=== PATIENT | male | born 1975 | race Caucasian/White ===

== ENCOUNTER 2022-09-09 14:10 | Inpatient (IN) | payer BC ==
[2022-09-09 17:01] VITALS: BMI 23.7
[2022-09-09] MEDS ORDERED: MAG HYDROX/AL HYDROX/SIMETH 30 ML UNIT-DOSE CUP PO PRN (18:24)
[2022-09-09] MEDS ORDERED: BENZOCAINE/MENTHOL (CHLORASEPTIC ) LOZENGE MM PRN (18:24)
[2022-09-09] MEDS ORDERED: ACETAMINOPHEN 325 MG TABLET (FP) PO PRN (18:24)
[2022-09-09] MEDS ORDERED: P-EPHED 60MG/TRIPROLIDI 2.5MG TABLET PO PRN (18:24)
[2022-09-09] MEDS ORDERED: POLYETHYLENE GLYCOL (HEALTHYLAX) 3350 17 GM PACKET PO PRN (18:24)
[2022-09-09] MEDS ORDERED: guaiFENesin 200 MG/10 ML 10 ML UNIT-DOSE CUPS PO PRN (18:24)
[2022-09-09] MEDS ORDERED: IBUPROFEN 400 MG TABLET (FP) PO PRN (18:24)
[2022-09-09] MEDS ORDERED: MAGNESIUM HYDROX 2400MG/30ML ORAL SUSPENSION 30 ML CUP PO PRN (18:24)
[2022-09-09] MEDS ORDERED: LOPERAMIDE HCL 2 MG CAPSULE PO PRN (18:24)
[2022-09-10] MEDS ORDERED: TUBERCULIN PPD 5 TU/0.1ML VIAL ID ONE (01:00)
[2022-09-10] MEDS ORDERED: INSULIN (NOVOLOG) ASPART 100 UNITS/ML 10ML VIAL SQ ONE (01:39)
[2022-09-10] MEDS ORDERED: INSULIN (NOVOLOG) ASPART 100 UNITS/ML 10ML VIAL ONE ×3 (01:43→17:05)
[2022-09-10] MEDS ORDERED: INSULIN SLIDING SCALE (NOVOLOG) 1 VIAL SQ SCH (07:00)
[2022-09-10] MEDS: INSULIN SLIDING SCALE (NOVOLOG) 1 VIAL SQ SCH ×4 (08:50→22:04)
[2022-09-10] MEDS ORDERED: methaDONE HCL 10 MG TABLET PO SCH (10:00)
[2022-09-10] MEDS ORDERED: methaDONE 80 MG, methaDONE 20 MG PO ONE (10:15)
[2022-09-10] MEDS: NICOTINE 14 MG/24 HOURS TOPICAL PATCH TD SCH ×2 (10:22→17:17)
[2022-09-10] MEDS: PRENATAL VITAMINS W/ FOLIC ACID TABLET (FP) PO SCH ×2 (10:22→17:13)
[2022-09-10] MEDS: INSULIN (NOVOLOG) ASPART 100 UNITS/ML 10ML VIAL SQ SCH ×2 (11:39→17:44)
[2022-09-10] MEDS: NICOTINE 10 MG CARTRIDGE (INHALER) IH PRN (11:56)
[2022-09-10 14:36] LABS: HEMATOCRIT 29.3 % (35.4-49); HEMOGLOBIN 9.4 GM/dL (11.7-16.9); MCH 26.6 pg (25.7-33.7); MCHC 32.2 g/dl (32.0-35.9); MEAN CELL VOLUME 82.7 fl (80-96); MEAN PLT VOLUME 7.5 fl (7.5-11.1); PLATELET COUNT 322 10^3/uL (134-434); RBC 3.54 M/mm3 (4.00-5.60); RDW 16.6 % (11.9-15.9); WHITE BLOOD COUNT 5.4 K/mm3 (4.0-10.0)
[2022-09-10 15:12] LABS: CHLORIDE 99 mmol/L (98-107); SODIUM 135 mmol/L (136-145)
[2022-09-10 15:34] LABS: ALBUMIN 2.6 g/dl (3.4-5.0); ANION GAP 10 MMOL/L (8-16); CALCIUM 8.5 mg/dL (8.5-10.1); CO2 26 mmol/L (21-32)
[2022-09-10 15:38] LABS: SGOT/AST 17 U/L (15-37); SGPT/ALT 27 U/L (13-61)
[2022-09-10 15:39] LABS: BILIRUBIN,TOTAL 0.5 mg/dL (0.2-1); TOT PROT 6.1 g/dl (6.4-8.2)
[2022-09-10 15:40] LABS: ALK PHOS 111 U/L (45-117); CREATININE 0.8 mg/dL (0.55-1.3); SYPHILIS W/ RPR CONF NON-REACTIVE (NONREACTIVE)
[2022-09-10 15:44] LABS: GLUCOSE,RANDOM 444 mg/dL (74-106)
[2022-09-10] MEDS: MELATONIN 5 MG TABLETS PO SCH ×2 (17:16→21:26)
[2022-09-10] MEDS: THIAMINE HCL 100 MG TABLET (FP) PO SCH ×2 (17:16→21:26)
[2022-09-10] MEDS: AMOX TR/POT CLAV 875MG/125MG TABLETS (FP) PO SCH (17:48)
[2022-09-10] MEDS: hydrOXYzine PAMOATE 25 MG CAPSULE (FP) PO PRN (21:26)
[2022-09-10] MEDS: PRAZOSIN HCL 1 MG CAPSULE PO SCH (21:26)
[2022-09-10] MEDS: INSULIN (LEVEMIR) 100 UNITS/ML UNITS SQ SCH (21:26)
[2022-09-10] MEDS: SULFAMETHOXAZOLE/TRIMETHOPRIM 800MG/160MG D.S. TABLET PO SCH (21:26)
[2022-09-10] MEDS: LITHIUM CARBONATE 450 MG TABLET.ER PO SCH (21:26)
[2022-09-11] MEDS: methaDONE 80 MG, methaDONE 20 MG PO SCH (06:31)
[2022-09-11] MEDS: INSULIN SLIDING SCALE (NOVOLOG) 1 VIAL SQ SCH ×4 (06:32→21:31)
[2022-09-11] MEDS: INSULIN (NOVOLOG) ASPART 100 UNITS/ML 10ML VIAL SQ SCH ×3 (07:08→17:51)
[2022-09-11] MEDS: AMOX TR/POT CLAV 875MG/125MG TABLETS (FP) PO SCH ×2 (09:25→16:43)
[2022-09-11 09:37] LABS: PH,URINE 7.5 (5.0-8.0); URINE APPEARANCE CLEAR; URINE BILIRUBIN NEGATIVE (NEGATIVE); URINE COLOR YELLOW; URINE GLUCOSE (UA) NEGATIVE (NEGATIVE); URINE KETONE NEGATIVE (NEGATIVE); URINE LEUK ESTERASE NEGATIVE (NEGATIVE); URINE NITRITE NEGATIVE (NEGATIVE); URINE PROTEIN NEGATIVE (NEGATIVE); URINE UROBILINOGEN 0.2 mg/dL (0.2-1.0)
[2022-09-11] MEDS: SULFAMETHOXAZOLE/TRIMETHOPRIM 800MG/160MG D.S. TABLET PO SCH ×2 (09:56→21:05)
[2022-09-11] MEDS: PRENATAL VITAMINS W/ FOLIC ACID TABLET (FP) PO SCH (09:56)
[2022-09-11] MEDS: NICOTINE 14 MG/24 HOURS TOPICAL PATCH TD SCH (09:58)
[2022-09-11] MEDS: BACITRACIN 0.9 GM PACKET TP SCH (09:59)
[2022-09-11] MEDS ORDERED: INSULIN (NOVOLOG) ASPART 100 UNITS/ML 10ML VIAL ONE (11:57)
[2022-09-11] MEDS: THIAMINE HCL 100 MG TABLET (FP) PO SCH (21:05)
[2022-09-11] MEDS: PRAZOSIN HCL 1 MG CAPSULE PO SCH (21:05)
[2022-09-11] MEDS: MELATONIN 5 MG TABLETS PO SCH (21:05)
[2022-09-11] MEDS: LITHIUM CARBONATE 450 MG TABLET.ER PO SCH (21:06)
[2022-09-11] MEDS: INSULIN (LEVEMIR) 100 UNITS/ML UNITS SQ SCH (21:08)
[2022-09-11] MEDS ORDERED: INSULIN (LEVEMIR) 100 UNITS/ML UNITS SQ ONE (22:58)
[2022-09-12] MEDS: methaDONE 80 MG, methaDONE 20 MG PO SCH (06:40)
[2022-09-12] MEDS: INSULIN SLIDING SCALE (NOVOLOG) 1 VIAL SQ SCH ×4 (06:42→21:22)
[2022-09-12] MEDS: INSULIN (NOVOLOG) ASPART 100 UNITS/ML 10ML VIAL SQ SCH ×3 (07:31→17:09)
[2022-09-12] MEDS: BACITRACIN 0.9 GM PACKET TP SCH (10:03)
[2022-09-12] MEDS: NICOTINE 14 MG/24 HOURS TOPICAL PATCH TD SCH (10:03)
[2022-09-12] MEDS: AMOX TR/POT CLAV 875MG/125MG TABLETS (FP) PO SCH ×2 (10:03→17:09)
[2022-09-12] MEDS: SULFAMETHOXAZOLE/TRIMETHOPRIM 800MG/160MG D.S. TABLET PO SCH ×2 (10:03→21:20)
[2022-09-12] MEDS: PRENATAL VITAMINS W/ FOLIC ACID TABLET (FP) PO SCH (10:04)
[2022-09-12] MEDS ORDERED: INSULIN (NOVOLOG) ASPART 100 UNITS/ML 10ML VIAL ONE ×3 (11:58→23:17)
[2022-09-12] MEDS: PRAZOSIN HCL 1 MG CAPSULE PO SCH (21:20)
[2022-09-12] MEDS: LITHIUM CARBONATE 450 MG TABLET.ER PO SCH (21:20)
[2022-09-12] MEDS: hydrOXYzine PAMOATE 25 MG CAPSULE (FP) PO PRN (21:20)
[2022-09-12] MEDS: INSULIN (LEVEMIR) 100 UNITS/ML UNITS SQ SCH (21:22)
[2022-09-12] MEDS: MELATONIN 5 MG TABLETS PO SCH (21:22)
[2022-09-12] MEDS: THIAMINE HCL 100 MG TABLET (FP) PO SCH (21:23)
[2022-09-12] MEDS ORDERED: INSULIN (LEVEMIR) 100 UNITS/ML UNITS SQ ONE (23:17)
[2022-09-13] MEDS: methaDONE 80 MG, methaDONE 20 MG PO SCH (06:20)
[2022-09-13] MEDS: INSULIN SLIDING SCALE (NOVOLOG) 1 VIAL SQ SCH ×4 (06:23→21:05)
[2022-09-13] MEDS: INSULIN (NOVOLOG) ASPART 100 UNITS/ML 10ML VIAL SQ SCH ×3 (07:09→17:01)
[2022-09-13] MEDS: SULFAMETHOXAZOLE/TRIMETHOPRIM 800MG/160MG D.S. TABLET PO SCH ×2 (09:44→21:04)
[2022-09-13] MEDS: BACITRACIN 0.9 GM PACKET TP SCH (09:44)
[2022-09-13] MEDS: PRENATAL VITAMINS W/ FOLIC ACID TABLET (FP) PO SCH (09:44)
[2022-09-13] MEDS: NICOTINE 14 MG/24 HOURS TOPICAL PATCH TD SCH (09:45)
[2022-09-13] MEDS: AMOX TR/POT CLAV 875MG/125MG TABLETS (FP) PO SCH ×2 (09:45→17:01)
[2022-09-13] MEDS ORDERED: INSULIN (NOVOLOG) ASPART 100 UNITS/ML 10ML VIAL ONE (11:56)
[2022-09-13] MEDS: LITHIUM CARBONATE 450 MG TABLET.ER PO SCH (21:04)
[2022-09-13] MEDS: PRAZOSIN HCL 1 MG CAPSULE PO SCH (21:04)
[2022-09-13] MEDS: MELATONIN 5 MG TABLETS PO SCH (21:04)
[2022-09-13] MEDS: INSULIN (LEVEMIR) 100 UNITS/ML UNITS SQ SCH (21:04)
[2022-09-13] MEDS: THIAMINE HCL 100 MG TABLET (FP) PO SCH (21:04)
[2022-09-14] MEDS: methaDONE 80 MG, methaDONE 20 MG PO SCH (07:03)
[2022-09-14] MEDS: INSULIN SLIDING SCALE (NOVOLOG) 1 VIAL SQ SCH ×4 (07:03→22:55)
[2022-09-14] MEDS: AMOX TR/POT CLAV 875MG/125MG TABLETS (FP) PO SCH ×2 (08:10→17:02)
[2022-09-14] MEDS: INSULIN (NOVOLOG) ASPART 100 UNITS/ML 10ML VIAL SQ SCH ×3 (08:11→17:02)
[2022-09-14] MEDS: PRENATAL VITAMINS W/ FOLIC ACID TABLET (FP) PO SCH (10:01)
[2022-09-14] MEDS: SULFAMETHOXAZOLE/TRIMETHOPRIM 800MG/160MG D.S. TABLET PO SCH ×2 (10:01→21:24)
[2022-09-14] MEDS: FERROUS SO4 325 MG TABLET (FP) PO SCH (10:01)
[2022-09-14] MEDS: NICOTINE 14 MG/24 HOURS TOPICAL PATCH TD SCH (10:01)
[2022-09-14] MEDS: BACITRACIN 0.9 GM PACKET TP SCH (10:03)
[2022-09-14] MEDS ORDERED: INSULIN (NOVOLOG) ASPART 100 UNITS/ML 10ML VIAL ONE (11:58)
[2022-09-14] MEDS: PRAZOSIN HCL 1 MG CAPSULE PO SCH (21:24)
[2022-09-14] MEDS: hydrOXYzine PAMOATE 25 MG CAPSULE (FP) PO PRN (21:24)
[2022-09-14] MEDS: MELATONIN 5 MG TABLETS PO SCH (21:24)
[2022-09-14] MEDS: THIAMINE HCL 100 MG TABLET (FP) PO SCH (21:24)
[2022-09-14] MEDS: LITHIUM CARBONATE 450 MG TABLET.ER PO SCH (21:26)
[2022-09-14] MEDS: INSULIN (LEVEMIR) 100 UNITS/ML UNITS SQ SCH (21:26)
[2022-09-15] MEDS: methaDONE 80 MG, methaDONE 20 MG PO SCH (06:36)
[2022-09-15] MEDS: INSULIN SLIDING SCALE (NOVOLOG) 1 VIAL SQ SCH ×4 (06:36→21:21)
[2022-09-15] MEDS: INSULIN (NOVOLOG) ASPART 100 UNITS/ML 10ML VIAL SQ SCH ×3 (07:21→17:05)
[2022-09-15] MEDS: AMOX TR/POT CLAV 875MG/125MG TABLETS (FP) PO SCH (09:48)
[2022-09-15] MEDS: SULFAMETHOXAZOLE/TRIMETHOPRIM 800MG/160MG D.S. TABLET PO SCH (09:48)
[2022-09-15] MEDS: BACITRACIN 0.9 GM PACKET TP SCH (09:48)
[2022-09-15] MEDS: NICOTINE 14 MG/24 HOURS TOPICAL PATCH TD SCH (09:49)
[2022-09-15] MEDS: FERROUS SO4 325 MG TABLET (FP) PO SCH (09:49)
[2022-09-15] MEDS: PRENATAL VITAMINS W/ FOLIC ACID TABLET (FP) PO SCH (09:49)
[2022-09-15] MEDS ORDERED: INSULIN (NOVOLOG) ASPART 100 UNITS/ML 10ML VIAL ONE ×2 (11:56→22:45)
[2022-09-15] MEDS: MELATONIN 5 MG TABLETS PO SCH (21:17)
[2022-09-15] MEDS: THIAMINE HCL 100 MG TABLET (FP) PO SCH (21:17)
[2022-09-15] MEDS: LITHIUM CARBONATE 450 MG TABLET.ER PO SCH (21:18)
[2022-09-15] MEDS: hydrOXYzine PAMOATE 25 MG CAPSULE (FP) PO PRN (21:18)
[2022-09-15] MEDS: PRAZOSIN HCL 1 MG CAPSULE PO SCH (21:18)
[2022-09-15] MEDS: INSULIN (LEVEMIR) 100 UNITS/ML UNITS SQ SCH (21:22)
[2022-09-15] MEDS ORDERED: INSULIN (LEVEMIR) 100 UNITS/ML UNITS SQ ONE (22:45)
[2022-09-16] MEDS: methaDONE 80 MG, methaDONE 20 MG PO SCH (06:20)
[2022-09-16] MEDS: INSULIN SLIDING SCALE (NOVOLOG) 1 VIAL SQ SCH ×4 (06:21→21:39)
[2022-09-16] MEDS: INSULIN (NOVOLOG) ASPART 100 UNITS/ML 10ML VIAL SQ SCH ×3 (07:01→16:57)
[2022-09-16] MEDS: PRENATAL VITAMINS W/ FOLIC ACID TABLET (FP) PO SCH (10:00)
[2022-09-16] MEDS: FERROUS SO4 325 MG TABLET (FP) PO SCH (10:00)
[2022-09-16] MEDS: NICOTINE 14 MG/24 HOURS TOPICAL PATCH TD SCH (10:00)
[2022-09-16] MEDS ORDERED: INSULIN (NOVOLOG) ASPART 100 UNITS/ML 10ML VIAL ONE (11:52)
[2022-09-16] MEDS: THIAMINE HCL 100 MG TABLET (FP) PO SCH (21:04)
[2022-09-16] MEDS: LITHIUM CARBONATE 450 MG TABLET.ER PO SCH (21:04)
[2022-09-16] MEDS: hydrOXYzine PAMOATE 25 MG CAPSULE (FP) PO PRN (21:04)
[2022-09-16] MEDS: PRAZOSIN HCL 1 MG CAPSULE PO SCH (21:04)
[2022-09-16] MEDS: MELATONIN 5 MG TABLETS PO SCH (21:04)
[2022-09-16] MEDS: INSULIN (LEVEMIR) 100 UNITS/ML UNITS SQ SCH (21:07)
[2022-09-17] MEDS: methaDONE 80 MG, methaDONE 20 MG PO SCH (06:11)
[2022-09-17] MEDS: INSULIN SLIDING SCALE (NOVOLOG) 1 VIAL SQ SCH ×4 (06:12→21:09)
[2022-09-17] MEDS: NICOTINE 10 MG CARTRIDGE (INHALER) IH PRN (06:12)
[2022-09-17] MEDS: INSULIN (NOVOLOG) ASPART 100 UNITS/ML 10ML VIAL SQ SCH ×3 (07:03→18:49)
[2022-09-17] MEDS: NICOTINE 14 MG/24 HOURS TOPICAL PATCH TD SCH (10:12)
[2022-09-17] MEDS: FERROUS SO4 325 MG TABLET (FP) PO SCH (10:13)
[2022-09-17] MEDS: PRENATAL VITAMINS W/ FOLIC ACID TABLET (FP) PO SCH (10:14)
[2022-09-17] MEDS ORDERED: INSULIN (NOVOLOG) ASPART 100 UNITS/ML 10ML VIAL ONE ×2 (12:06→16:32)
[2022-09-17] MEDS: THIAMINE HCL 100 MG TABLET (FP) PO SCH (21:04)
[2022-09-17] MEDS: MELATONIN 5 MG TABLETS PO SCH (21:04)
[2022-09-17] MEDS: hydrOXYzine PAMOATE 25 MG CAPSULE (FP) PO PRN (21:05)
[2022-09-17] MEDS: LITHIUM CARBONATE 450 MG TABLET.ER PO SCH (21:05)
[2022-09-17] MEDS: PRAZOSIN HCL 1 MG CAPSULE PO SCH (21:05)
[2022-09-17] MEDS: INSULIN (LEVEMIR) 100 UNITS/ML UNITS SQ SCH (21:06)
[2022-09-18] MEDS: INSULIN SLIDING SCALE (NOVOLOG) 1 VIAL SQ SCH ×4 (07:12→22:21)
[2022-09-18] MEDS: INSULIN (NOVOLOG) ASPART 100 UNITS/ML 10ML VIAL SQ SCH ×3 (07:13→21:31)
[2022-09-18] MEDS ORDERED: methaDONE HCL 40 MG DISPERSABLE TABLET PO ONE (07:26)
[2022-09-18] MEDS ORDERED: methaDONE 80 MG, methaDONE 20 MG PO ONE (07:45)
[2022-09-18] MEDS: methaDONE 80 MG, methaDONE 20 MG PO SCH (07:59)
[2022-09-18] MEDS: NICOTINE 14 MG/24 HOURS TOPICAL PATCH TD SCH (10:31)
[2022-09-18] MEDS: FERROUS SO4 325 MG TABLET (FP) PO SCH (10:31)
[2022-09-18] MEDS: PRENATAL VITAMINS W/ FOLIC ACID TABLET (FP) PO SCH (10:32)
[2022-09-18] MEDS ORDERED: INSULIN (NOVOLOG) ASPART 100 UNITS/ML 10ML VIAL ONE (11:51)
[2022-09-18] MEDS: LITHIUM CARBONATE 450 MG TABLET.ER PO SCH (21:30)
[2022-09-18] MEDS: THIAMINE HCL 100 MG TABLET (FP) PO SCH (21:30)
[2022-09-18] MEDS: PRAZOSIN HCL 1 MG CAPSULE PO SCH (21:30)
[2022-09-18] MEDS: hydrOXYzine PAMOATE 25 MG CAPSULE (FP) PO PRN (21:30)
[2022-09-18] MEDS: MELATONIN 5 MG TABLETS PO SCH (21:31)
[2022-09-18] MEDS: INSULIN (LEVEMIR) 100 UNITS/ML UNITS SQ SCH (22:21)
[2022-09-19] MEDS: methaDONE 80 MG, methaDONE 20 MG PO SCH (06:49)
[2022-09-19] MEDS: INSULIN SLIDING SCALE (NOVOLOG) 1 VIAL SQ SCH ×4 (06:51→22:18)
[2022-09-19] MEDS: INSULIN (NOVOLOG) ASPART 100 UNITS/ML 10ML VIAL SQ SCH ×3 (07:49→17:35)
[2022-09-19] MEDS: FERROUS SO4 325 MG TABLET (FP) PO SCH (09:52)
[2022-09-19] MEDS: NICOTINE 14 MG/24 HOURS TOPICAL PATCH TD SCH (09:53)
[2022-09-19] MEDS: PRENATAL VITAMINS W/ FOLIC ACID TABLET (FP) PO SCH (09:53)
[2022-09-19] MEDS: NICOTINE 10 MG CARTRIDGE (INHALER) IH PRN ×2 (10:19→21:35)
[2022-09-19] MEDS: LITHIUM CARBONATE 450 MG TABLET.ER PO SCH (21:36)
[2022-09-19] MEDS: THIAMINE HCL 100 MG TABLET (FP) PO SCH (21:36)
[2022-09-19] MEDS: MELATONIN 5 MG TABLETS PO SCH (21:36)
[2022-09-19] MEDS: hydrOXYzine PAMOATE 25 MG CAPSULE (FP) PO PRN (21:36)
[2022-09-19] MEDS: PRAZOSIN HCL 1 MG CAPSULE PO SCH (21:36)
[2022-09-19] MEDS: INSULIN (LEVEMIR) 100 UNITS/ML UNITS SQ SCH (22:17)
[2022-09-20] MEDS: methaDONE 80 MG, methaDONE 20 MG PO SCH (06:15)
[2022-09-20] MEDS: INSULIN SLIDING SCALE (NOVOLOG) 1 VIAL SQ SCH ×4 (06:16→22:42)
[2022-09-20] MEDS: INSULIN (NOVOLOG) ASPART 100 UNITS/ML 10ML VIAL SQ SCH ×3 (07:25→17:04)
[2022-09-20] MEDS: NICOTINE 14 MG/24 HOURS TOPICAL PATCH TD SCH (09:02)
[2022-09-20] MEDS: FERROUS SO4 325 MG TABLET (FP) PO SCH (09:02)
[2022-09-20] MEDS: PRENATAL VITAMINS W/ FOLIC ACID TABLET (FP) PO SCH (09:02)
[2022-09-20] MEDS ORDERED: INSULIN (NOVOLOG) ASPART 100 UNITS/ML 10ML VIAL ONE ×2 (11:54→13:26)
[2022-09-20] MEDS ORDERED: INSULIN SLIDING SCALE (NOVOLOG) 1 VIAL SQ ONE (13:45)
[2022-09-20] MEDS: hydrOXYzine PAMOATE 25 MG CAPSULE (FP) PO PRN (21:24)
[2022-09-20] MEDS: NICOTINE 10 MG CARTRIDGE (INHALER) IH PRN (21:24)
[2022-09-20] MEDS: LITHIUM CARBONATE 450 MG TABLET.ER PO SCH (21:24)
[2022-09-20] MEDS: THIAMINE HCL 100 MG TABLET (FP) PO SCH (21:24)
[2022-09-20] MEDS: MELATONIN 5 MG TABLETS PO SCH (21:24)
[2022-09-20] MEDS: PRAZOSIN HCL 1 MG CAPSULE PO SCH (21:24)
[2022-09-20] MEDS: INSULIN (LEVEMIR) 100 UNITS/ML UNITS SQ SCH (22:20)
[2022-09-21] MEDS: methaDONE 80 MG, methaDONE 20 MG PO SCH (06:05)
[2022-09-21] MEDS: INSULIN SLIDING SCALE (NOVOLOG) 1 VIAL SQ SCH ×4 (07:16→21:13)
[2022-09-21] MEDS: INSULIN (NOVOLOG) ASPART 100 UNITS/ML 10ML VIAL SQ SCH ×3 (07:16→16:41)
[2022-09-21] MEDS: PRENATAL VITAMINS W/ FOLIC ACID TABLET (FP) PO SCH (09:41)
[2022-09-21] MEDS: FERROUS SO4 325 MG TABLET (FP) PO SCH (09:41)
[2022-09-21] MEDS: NICOTINE 14 MG/24 HOURS TOPICAL PATCH TD SCH (09:42)
[2022-09-21] MEDS: hydrOXYzine PAMOATE 25 MG CAPSULE (FP) PO PRN (21:10)
[2022-09-21] MEDS: THIAMINE HCL 100 MG TABLET (FP) PO SCH (21:10)
[2022-09-21] MEDS: PRAZOSIN HCL 1 MG CAPSULE PO SCH (21:10)
[2022-09-21] MEDS: LITHIUM CARBONATE 450 MG TABLET.ER PO SCH (21:10)
[2022-09-21] MEDS: MELATONIN 5 MG TABLETS PO SCH (21:10)
[2022-09-21] MEDS: INSULIN (LEVEMIR) 100 UNITS/ML UNITS SQ SCH (21:12)
[2022-09-21] MEDS ORDERED: INSULIN (NOVOLOG) ASPART 100 UNITS/ML 10ML VIAL ONE (21:50)
[2022-09-21] MEDS ORDERED: INSULIN (LEVEMIR) 100 UNITS/ML UNITS SQ ONE (21:50)
[2022-09-22] MEDS: methaDONE 80 MG, methaDONE 20 MG PO SCH (06:48)
[2022-09-22] MEDS: INSULIN SLIDING SCALE (NOVOLOG) 1 VIAL SQ SCH ×4 (06:55→21:28)
[2022-09-22] MEDS: INSULIN (NOVOLOG) ASPART 100 UNITS/ML 10ML VIAL SQ SCH ×3 (07:25→17:47)
[2022-09-22] MEDS: NICOTINE 14 MG/24 HOURS TOPICAL PATCH TD SCH (09:32)
[2022-09-22] MEDS: PRENATAL VITAMINS W/ FOLIC ACID TABLET (FP) PO SCH (09:32)
[2022-09-22] MEDS: FERROUS SO4 325 MG TABLET (FP) PO SCH (09:32)
[2022-09-22] MEDS ORDERED: INSULIN (NOVOLOG) ASPART 100 UNITS/ML 10ML VIAL ONE ×3 (11:46→21:33)
[2022-09-22] MEDS ORDERED: INSULIN (NOVOLOG) ASPART 100 UNITS/ML 10ML VIAL SQ ONE (17:37)
[2022-09-22] MEDS: PRAZOSIN HCL 1 MG CAPSULE PO SCH (21:24)
[2022-09-22] MEDS: THIAMINE HCL 100 MG TABLET (FP) PO SCH (21:24)
[2022-09-22] MEDS: MELATONIN 5 MG TABLETS PO SCH (21:24)
[2022-09-22] MEDS: INSULIN (LEVEMIR) 100 UNITS/ML UNITS SQ SCH (21:31)
[2022-09-22] MEDS: LITHIUM CARBONATE 450 MG TABLET.ER PO SCH (21:31)
[2022-09-22] MEDS ORDERED: INSULIN (LEVEMIR) 100 UNITS/ML UNITS SQ ONE (21:33)
[2022-09-23] MEDS: methaDONE 80 MG, methaDONE 20 MG PO SCH (07:04)
[2022-09-23] MEDS: INSULIN (NOVOLOG) ASPART 100 UNITS/ML 10ML VIAL SQ SCH ×3 (07:06→16:34)
[2022-09-23] MEDS: INSULIN SLIDING SCALE (NOVOLOG) 1 VIAL SQ SCH ×4 (07:06→21:14)
[2022-09-23] MEDS: FERROUS SO4 325 MG TABLET (FP) PO SCH (09:30)
[2022-09-23] MEDS: NICOTINE 14 MG/24 HOURS TOPICAL PATCH TD SCH (09:30)
[2022-09-23] MEDS: PRENATAL VITAMINS W/ FOLIC ACID TABLET (FP) PO SCH (09:30)
[2022-09-23] MEDS: NICOTINE 10 MG CARTRIDGE (INHALER) IH PRN (09:31)
[2022-09-23] MEDS ORDERED: INSULIN (NOVOLOG) ASPART 100 UNITS/ML 10ML VIAL ONE (11:51)
[2022-09-23] MEDS: MELATONIN 5 MG TABLETS PO SCH (21:10)
[2022-09-23] MEDS: THIAMINE HCL 100 MG TABLET (FP) PO SCH (21:10)
[2022-09-23] MEDS: INSULIN (LEVEMIR) 100 UNITS/ML UNITS SQ SCH (21:10)
[2022-09-23] MEDS: PRAZOSIN HCL 1 MG CAPSULE PO SCH (21:11)
[2022-09-23] MEDS: LITHIUM CARBONATE 450 MG TABLET.ER PO SCH (21:11)
[2022-09-23] MEDS: hydrOXYzine PAMOATE 25 MG CAPSULE (FP) PO PRN (21:11)
[2022-09-24] MEDS: methaDONE 80 MG, methaDONE 20 MG PO SCH (07:00)
[2022-09-24] MEDS: INSULIN (NOVOLOG) ASPART 100 UNITS/ML 10ML VIAL SQ SCH ×3 (07:01→17:02)
[2022-09-24] MEDS: INSULIN SLIDING SCALE (NOVOLOG) 1 VIAL SQ SCH ×4 (07:01→21:49)
[2022-09-24] MEDS: NICOTINE 14 MG/24 HOURS TOPICAL PATCH TD SCH (09:58)
[2022-09-24] MEDS: PRENATAL VITAMINS W/ FOLIC ACID TABLET (FP) PO SCH (09:58)
[2022-09-24] MEDS: FERROUS SO4 325 MG TABLET (FP) PO SCH (09:58)
[2022-09-24] MEDS ORDERED: INSULIN (NOVOLOG) ASPART 100 UNITS/ML 10ML VIAL ONE (12:02)
[2022-09-24] MEDS: LITHIUM CARBONATE 450 MG TABLET.ER PO SCH (21:45)
[2022-09-24] MEDS: PRAZOSIN HCL 1 MG CAPSULE PO SCH (21:46)
[2022-09-24] MEDS: MELATONIN 5 MG TABLETS PO SCH (21:46)
[2022-09-24] MEDS: THIAMINE HCL 100 MG TABLET (FP) PO SCH (21:46)
[2022-09-24] MEDS: INSULIN (LEVEMIR) 100 UNITS/ML UNITS SQ SCH (21:49)
[2022-09-25] MEDS: methaDONE 80 MG, methaDONE 20 MG PO SCH (06:47)
[2022-09-25] MEDS: INSULIN SLIDING SCALE (NOVOLOG) 1 VIAL SQ SCH ×5 (06:48→23:55)
[2022-09-25] MEDS: INSULIN (NOVOLOG) ASPART 100 UNITS/ML 10ML VIAL SQ SCH ×3 (07:13→18:38)
[2022-09-25] MEDS: FERROUS SO4 325 MG TABLET (FP) PO SCH (09:52)
[2022-09-25] MEDS: PRENATAL VITAMINS W/ FOLIC ACID TABLET (FP) PO SCH (09:52)
[2022-09-25] MEDS: NICOTINE 14 MG/24 HOURS TOPICAL PATCH TD SCH (09:52)
[2022-09-25] MEDS ORDERED: INSULIN (NOVOLOG) ASPART 100 UNITS/ML 10ML VIAL ONE ×3 (12:00→23:51)
[2022-09-25] MEDS: PRAZOSIN HCL 1 MG CAPSULE PO SCH (21:55)
[2022-09-25] MEDS: THIAMINE HCL 100 MG TABLET (FP) PO SCH (21:55)
[2022-09-25] MEDS: INSULIN (LEVEMIR) 100 UNITS/ML UNITS SQ SCH (21:55)
[2022-09-25] MEDS: MELATONIN 5 MG TABLETS PO SCH (21:55)
[2022-09-25] MEDS: LITHIUM CARBONATE 450 MG TABLET.ER PO SCH (21:55)
[2022-09-25] MEDS ORDERED: INSULIN (LEVEMIR) 100 UNITS/ML UNITS SQ ONE ×2 (23:09→23:51)
[2022-09-26] MEDS: methaDONE 80 MG, methaDONE 20 MG PO SCH (07:47)
[2022-09-26] MEDS: INSULIN SLIDING SCALE (NOVOLOG) 1 VIAL SQ SCH ×4 (07:50→23:25)
[2022-09-26] MEDS: INSULIN (NOVOLOG) ASPART 100 UNITS/ML 10ML VIAL SQ SCH ×3 (07:51→16:40)
[2022-09-26] MEDS: FERROUS SO4 325 MG TABLET (FP) PO SCH (09:23)
[2022-09-26] MEDS: PRENATAL VITAMINS W/ FOLIC ACID TABLET (FP) PO SCH (09:23)
[2022-09-26] MEDS: NICOTINE 14 MG/24 HOURS TOPICAL PATCH TD SCH (09:23)
[2022-09-26] MEDS ORDERED: INSULIN (NOVOLOG) ASPART 100 UNITS/ML 10ML VIAL ONE ×2 (11:51→16:27)
[2022-09-26 21:04] VITALS: RESP 16
[2022-09-26] MEDS: LITHIUM CARBONATE 450 MG TABLET.ER PO SCH (23:24)
[2022-09-26] MEDS: THIAMINE HCL 100 MG TABLET (FP) PO SCH (23:25)
[2022-09-26] MEDS: PRAZOSIN HCL 1 MG CAPSULE PO SCH (23:25)
[2022-09-26] MEDS: INSULIN (LEVEMIR) 100 UNITS/ML UNITS SQ SCH (23:25)
[2022-09-26] MEDS: MELATONIN 5 MG TABLETS PO SCH (23:25)
[2022-09-27] MEDS ORDERED: INSULIN (LEVEMIR) 100 UNITS/ML UNITS SQ ONE (00:07)
[2022-09-27] MEDS: methaDONE 80 MG, methaDONE 20 MG PO SCH (06:03)
[2022-09-27 06:15] VITALS: BP 103/66; PULSE 83; TEMP 98.2
[2022-09-27] MEDS: INSULIN (NOVOLOG) ASPART 100 UNITS/ML 10ML VIAL SQ SCH (07:06)
[2022-09-27] MEDS ORDERED: INSULIN (NOVOLOG) ASPART 100 UNITS/ML 10ML VIAL ONE ×3 (07:16→11:37)
[2022-09-27] MEDS: INSULIN SLIDING SCALE (NOVOLOG) 1 VIAL SQ SCH ×3 (07:57→17:26)
[2022-09-27] MEDS: FERROUS SO4 325 MG TABLET (FP) PO SCH (10:14)
[2022-09-27] MEDS: NICOTINE 14 MG/24 HOURS TOPICAL PATCH TD SCH (10:15)
[2022-09-27] MEDS: PRENATAL VITAMINS W/ FOLIC ACID TABLET (FP) PO SCH (10:15)
== END 2022-09-27 18:10 | disposition left against medical advice (07) | DRG 772 ==
LOC: YASAS 14:10 → Y3E 23:38
PROVIDERS: ADMIT Surgery; ATTEND Psychiatry & Neurology Pain Medicine
PROC: HZ42ZZZ Group Counseling for Substance Abuse Treatment, Cognitive-Behavioral (ICD-10-PCS; principal; 2022-09-09)
DX: F10.20 Alcohol dependence, uncomplicated (principal); F11.20 Opioid dependence, uncomplicated; F14.20 Cocaine dependence, uncomplicated; F12.20 Cannabis dependence, uncomplicated; F17.210 Nicotine dependence, cigarettes, uncomplicated; F19.280 Other psychoactive substance dependence with psychoactive substance-induced anxiety disorder; F19.282 Other psychoactive substance dependence with psychoactive substance-induced sleep disorder; F31.9 Bipolar disorder, unspecified; F41.9 Anxiety disorder, unspecified; E11.9 Type 2 diabetes mellitus without complications; Z79.4 Long term (current) use of insulin; Z62.810 Personal history of physical and sexual abuse in childhood; Z88.1 Allergy status to other antibiotic agents; Z88.8 Allergy status to other drugs, medicaments and biological substances
CPT/HCPCS: 36415; 80053; 80178; 81003; 82962; 85027; 86780; 86803; C9803-CS; U0003; U0005